=== PATIENT | female | born 1930 | race Asian ===

== ENCOUNTER 2020-11-07 07:04 | Emergency (ER) | payer MEDICARE, OTHER ==
[~2020-11-07] VITALS: Ht 154.9 cm; Wt 63.5 kg
[2020-11-07] MEDS ORDERED: MAGNESIUM SULF 50% 40 MEQ/10 ML VL IV ONE (07:05)
[2020-11-07] MEDS ORDERED: CALCIUM CHLOR(10%) 100MG/ML 10ML SYRINGE IV ONE (07:05)
[2020-11-07] MEDS ORDERED: EPINEPHrine HCL 1 MG/10 ML SYRG IV ONE (07:05)
[2020-11-07] MEDS ORDERED: SODIUM BICARBONATE 8.4% INJ 50ML SYRINGE IV ONE (07:05)
[2020-11-07] MEDS ORDERED: SODIUM BICARBONATE 8.4% INJ 50ML SYRINGE ONE ×2 (07:13→07:43)
[2020-11-07] MEDS ORDERED: EPINEPHrine HCL 250 ML IV SCH (07:15)
[2020-11-07] MEDS ORDERED: EPINEPHrine HCL 250 ML IV ONE (07:17)
[2020-11-07] MEDS ORDERED: NOREPINEPHRINE 8 MG/250ML KIT 250 ML IV ONE (07:27)
[2020-11-07] MEDS ORDERED: SODIUM BICARBONATE 8.4 % INJ 50ML VIAL IV ONE ×2 (07:45→07:47)
[2020-11-07] MEDS ORDERED: SODIUM CHLORIDE 0.9% 1,000 ML IV ONE (07:45)
[2020-11-07] MEDS ORDERED: NOREPINEPHRINE 8 MG/250ML KIT 250 ML IV SCH (07:45)
[2020-11-07] MEDS ORDERED: cefTRIAXone 1GM/50ML D5W 50 ML IV ONE (07:45)
[2020-11-07] MEDS ORDERED: CLINDAMYCIN 600MG IV 50 ML IV ONE (07:45)
[2020-11-07 07:51] LABS: Basophils # (auto) 0 10 ^3/uL (0-0.2); Basophils % (auto) 0.1 % (0.0-2.0); Eosinophils # (auto) 0 10 ^3/uL (0-0.8); Eosinophils % (auto) 0.4 % (0.0-7.0); Hematocrit 28.7 % (36.0-46.0); Hemoglobin 9.2 g/dL (12.2-16.2); Lymphocytes # (auto) 3.1 10 ^3/uL (0.4-5.4); Lymphocytes % (auto) 22.3 % (10.0-50.0); Mean Corpuscular Hemoglobin 29.2 pg (28.0-32.0); Mean Corpuscular Volume 91.2 fL (80.0-100.0); Monocytes # (auto) 0.4 10 ^3/uL (0-1.3); Monocytes % (auto) 3.2 % (0.0-12.0); Neutrophils # (auto) 10.3 10 ^3/uL (1.6-8.6); Nucleated Red Blood Cells % 1.1 %; Red Blood Cells 3.15 10^6/uL (4.0-5.20); Red Cell Distribution Width 14.7 % (11.8-14.3); White Blood Cell 13.9 10^3/uL (4.4-10.8)
[2020-11-07 08:08] LABS: Lactic Acid w/Reflex 9.7 mmol/L (0.4-2.0)
[2020-11-07 08:13] LABS: Albumin 1.4 g/dL (3.4-5.0)
[2020-11-07] MEDS ORDERED: ATROPINE SULF 1 MG/10ml SYR IV ONE (08:15)
[2020-11-07] MEDS ORDERED: SODIUM BICARBONATE 50ML VIAL 150 ML in D5W 5% 1,000 ML IV ONE (08:15)
[2020-11-07 08:19] LABS: BUN/Creatinine Ratio 21.3; Bilirubin, Total 0.4 mg/dL (0.2-1.0); Total Protein 4.9 g/dL (6.4-8.2)
[2020-11-07 08:27] LABS: INR 1.23 (0.9-1.15)
[2020-11-07 08:30] VITALS: BP 99/58
[2020-11-07 08:40] LABS: Partial Thromboplastin Time 96.6 sec (23.0-31.2); Potassium 6.2 mmol/L (3.5-5.1)
== END 2020-11-07 11:43 ==
LOC: EDBD 07:04 → ER 07:04
DX: I46.9 Cardiac arrest, cause unspecified (principal); A41.9 Sepsis, unspecified organism; J96.00 Acute respiratory failure, unspecified whether with hypoxia or hypercapnia; E11.9 Type 2 diabetes mellitus without complications; I10 Essential (primary) hypertension; E78.5 Hyperlipidemia, unspecified; J45.909 Unspecified asthma, uncomplicated
CPT/HCPCS: 31500; 36415; 36556; 36600; 80053; 82805; 83605; 83880; 84484; 85025; 85610; 85730; 87040; 87070; 87205; 92950; 93005; 99291; J0171; J3475; J7070; 94002